=== PATIENT | male | born 1940 | race Caucasian/White ===

== ENCOUNTER 2020-01-01 11:50 | Inpatient (IN) ==
[2020-01-01] MEDS ORDERED: Acetaminophen 325 MG TABLET PO ONE (12:04)
[2020-01-01] MEDS ORDERED: Dexamethasone 4 MG/ML VIAL IVP STA (12:06)
[2020-01-01 13:03] LABS: Eosinophils % 0.4 %; Hematocrit 39.4 % (37.5-50.1); Hemoglobin 13.2 g/dL (12.9-16.9); Immature Granulocytes % 0.4 % (0-4); Lymphocytes # 0.5 K/mcL (0.6-4.6); Mean Corpuscular HGB Conc 33.5 g/dL (31.6-35.5); Mean Corpuscular Hemoglobin 31.1 pg (28.0-33.3); Mean Corpuscular Volume 92.7 fL (83.0-100.0); Mean Platelet Volume 10.2 fL (9.4-12.4); Monocytes # 0.4 K/mcL (0.0-1.3); Monocytes % 16.3 %; Neutrophils # 1.4 K/mcL (1.6-8.9); Platelet Count 140 K/mcL (140-400); Red Blood Count 4.25 M/mcL (4.19-5.50); Red Cell Distribution Width 12.3 % (11.5-14.5); Segmented Neutrophils % 61.9 %; White Blood Count 2.3 K/mcL (4.3-11.1)
[2020-01-01] MEDS ORDERED: cefTRIAXone 1,000 MG in Water for inj. (sterile) 10 ML IVP ONE (13:19)
[2020-01-01] MEDS ORDERED: Azithromycin 500 MG in 0.9 % Sodium Chloride 250 ML IVPB ONE (13:19)
[2020-01-01 13:22] LABS: Alanine Aminotransferase 19 Units/L (7-52); Albumin 3.6 g/dL (3.5-5.7); Albumin/Globulin Ratio 1.3 (1.1-2.2); Alkaline Phosphatase 44 Units/L (34-104); Aspartate Amino Transferase 38 Units/L (13-39); BUN/Creatinine Ratio 13 (6-26); Bilirubin,Direct 0.3 mg/dL (0.0-0.2); Bilirubin,Indirect 0.8 mg/dL (0.0-1.0); Bilirubin,Total 1.1 mg/dL (0.3-1.0); Blood Urea Nitrogen 21 mg/dL (8-23); C-Reactive Protein 35 mg/L (Less than 10); Carbon Dioxide 23 mEq/L (23-29); Chloride 103 mEq/L (98-107); Globulin 2.7 g/dL (2.4-3.5); Glucose 111 mg/dL (70-105); Lactate Dehydrogenase 255 Units/L (140-271); Magnesium 2.2 mg/dL (1.6-2.6); Osmolality,Calculated 282 (280-300); Phosphorous 2.5 mg/dL (2.7-4.5); Potassium 4.3 mEq/L (3.5-5.1); Sodium 134 mEq/L (136-145); Total Protein 6.3 g/dL (6.4-8.9); Troponin I < 0.03 ng/mL (< 0.04); eGFR For African Americans 51 (> 60); eGFR For Non-African Americans 42 (> 60)
[2020-01-01 13:39] LABS: Ferritin 569 ng/mL (20-250)
[2020-01-01 14:22] LABS: Activated Partial Thrombo Time 29.3 Seconds (26.0-36.0); INR 1.1; Prothrombin Time 12.8 Seconds (9.4-12.1)
[2020-01-01] MEDS ORDERED: Naloxone 0.4 MG/ML INJ IVP PRN (14:45)
[2020-01-01] MEDS: 0.9 % Sodium Chloride 250 ML ONE (23:38)
[2020-01-02] MEDS ORDERED: *HR* Enoxaparin 30 MG/0.3 ML SYRINGE SQ SCH (06:00)
[2020-01-02 10:33] LABS: Basophils % 0.2 %; Hematocrit 42.9 % (37.5-50.1); Hemoglobin 14.5 g/dL (12.9-16.9); Immature Granulocytes % 0.4 % (0-4); Lymphocytes # 0.5 K/mcL (0.6-4.6); Mean Corpuscular HGB Conc 33.8 g/dL (31.6-35.5); Mean Corpuscular Volume 91.7 fL (83.0-100.0); Mean Platelet Volume 10.3 fL (9.4-12.4); Monocytes # 0.4 K/mcL (0.0-1.3); Monocytes % 7.8 %; Platelet Count 149 K/mcL (140-400); Red Blood Count 4.68 M/mcL (4.19-5.50); Red Cell Distribution Width 11.9 % (11.5-14.5); Segmented Neutrophils % 81.6 %
[2020-01-02 10:35] LABS: White Blood Count 4.9 K/mcL (4.3-11.1)
[2020-01-02 10:50] LABS: BUN/Creatinine Ratio 18 (6-26); Blood Urea Nitrogen 21 mg/dL (8-23); Calcium 8.6 mg/dL (8.6-10.3); Carbon Dioxide 22 mEq/L (23-29); Chloride 106 mEq/L (98-107); Glucose 115 mg/dL (70-105); Osmolality,Calculated 294 (280-300); Potassium 4.3 mEq/L (3.5-5.1); Sodium 140 mEq/L (136-145); eGFR For African Americans > 60 (> 60); eGFR For Non-African Americans 59 (> 60)
[2020-01-02] MEDS: Metoprolol XL (24 HR) Succ 25 MG TAB.ER.24H PO SCH (11:18)
[2020-01-02] MEDS: Azithromycin 250 MG TABLET PO SCH (19:37)
[2020-01-02] MEDS: Cefdinir 300 MG CAPSULE PO SCH (19:38)
[2020-01-02] MEDS: Melatonin 3 MG TABLET PO PRN (21:16)
[2020-01-02] MEDS ORDERED: 0.9 % Sodium Chloride 250 ML ONE (23:15)
[2020-01-02] MEDS: Acetaminophen 325 MG TABLET PO PRN (23:17)
[2020-01-03] MEDS: *HR* Enoxaparin 40 MG/0.4 ML SYRINGE SQ SCH (05:29)
[2020-01-03 08:47] LABS: Hematocrit 39.7 % (37.5-50.1); Hemoglobin 13.1 g/dL (12.9-16.9); Immature Granulocytes % 0.3 % (0-4); Lymphocytes # 0.6 K/mcL (0.6-4.6); Lymphocytes % 14.3 %; Mean Corpuscular Hemoglobin 30.4 pg (28.0-33.3); Mean Corpuscular Volume 92.1 fL (83.0-100.0); Mean Platelet Volume 9.9 fL (9.4-12.4); Monocytes # 0.3 K/mcL (0.0-1.3); Neutrophils # 3.1 K/mcL (1.6-8.9); Platelet Count 170 K/mcL (140-400); Red Blood Count 4.31 M/mcL (4.19-5.50); Red Cell Distribution Width 11.9 % (11.5-14.5); Segmented Neutrophils % 78.4 %
[2020-01-03 09:04] LABS: BUN/Creatinine Ratio 18 (6-26); Blood Urea Nitrogen 22 mg/dL (8-23); Calcium 8.1 mg/dL (8.6-10.3); Carbon Dioxide 24 mEq/L (23-29); Chloride 105 mEq/L (98-107); Glucose 98 mg/dL (70-105); Magnesium 2.1 mg/dL (1.6-2.6); Osmolality,Calculated 285 (280-300); Sodium 136 mEq/L (136-145); eGFR For African Americans > 60 (> 60); eGFR For Non-African Americans 58 (> 60)
[2020-01-03] MEDS: Azithromycin 250 MG TABLET PO SCH (09:51)
[2020-01-03] MEDS: Cefdinir 300 MG CAPSULE PO SCH (09:51)
[2020-01-03] MEDS: Aspirin Enteric Coated 81 MG Tablet PO SCH (09:52)
[2020-01-03] MEDS: Metoprolol XL (24 HR) Succ 25 MG TAB.ER.24H PO SCH (09:52)
[2020-01-03] MEDS ORDERED: Benzonatate 100 MG CAPSULE PO PRN (13:10)
[2020-01-03] MEDS: Ipratropium 1 PUFF INHALER IH SCH ×2 (17:11→22:01)
[2020-01-03] MEDS: Acetaminophen 325 MG TABLET PO PRN (20:19)
[2020-01-03] MEDS: Melatonin 3 MG TABLET PO PRN (20:20)
[2020-01-03] MEDS: Budesonide/Formoterol 80/4.5 1 PUFF INH IH SCH (22:01)
[2020-01-04] MEDS: Ipratropium 1 PUFF INHALER IH SCH ×4 (03:24→22:09)
[2020-01-04] MEDS: *HR* Enoxaparin 40 MG/0.4 ML SYRINGE SQ SCH (06:35)
[2020-01-04 07:32] LABS: Activated Partial Thrombo Time 27.3 Seconds (26.0-36.0)
[2020-01-04 07:34] LABS: INR 1.1; Prothrombin Time 12.8 Seconds (9.4-12.1)
[2020-01-04 07:40] LABS: Hematocrit 39.3 % (37.5-50.1); Hemoglobin 13.4 g/dL (12.9-16.9); Mean Corpuscular HGB Conc 34.1 g/dL (31.6-35.5); Mean Corpuscular Hemoglobin 31.6 pg (28.0-33.3); Mean Corpuscular Volume 92.7 fL (83.0-100.0); Mean Platelet Volume 9.9 fL (9.4-12.4); Platelet Count 183 K/mcL (140-400); Red Blood Count 4.24 M/mcL (4.19-5.50); White Blood Count 3.8 K/mcL (4.3-11.1)
[2020-01-04 08:07] LABS: Alanine Aminotransferase 18 Units/L (7-52); Albumin 3.2 g/dL (3.5-5.7); Albumin/Globulin Ratio 1.1 (1.1-2.2); Alkaline Phosphatase 50 Units/L (34-104); Aspartate Amino Transferase 28 Units/L (13-39); BUN/Creatinine Ratio 18 (6-26); Bilirubin,Total 0.8 mg/dL (0.3-1.0); Blood Urea Nitrogen 21 mg/dL (8-23); Calcium 8.3 mg/dL (8.6-10.3); Carbon Dioxide 22 mEq/L (23-29); Chloride 105 mEq/L (98-107); Glucose 95 mg/dL (70-105); Lactate Dehydrogenase 225 Units/L (140-271); Osmolality,Calculated 287 (280-300); Phosphorous 3.2 mg/dL (2.7-4.5); Potassium 3.8 mEq/L (3.5-5.1); Sodium 137 mEq/L (136-145); Total Protein 6.2 g/dL (6.4-8.9); eGFR For African Americans > 60 (> 60); eGFR For Non-African Americans 58 (> 60)
[2020-01-04 08:21] LABS: Ferritin 510 ng/mL (20-250)
[2020-01-04] MEDS ORDERED: Dexamethasone 4 MG/ML VIAL IVP SCH ×2 (09:00)
[2020-01-04 09:43] LABS: C-Reactive Protein 44 mg/L (Less than 10)
[2020-01-04] MEDS: Metoprolol XL (24 HR) Succ 25 MG TAB.ER.24H PO SCH (10:31)
[2020-01-04] MEDS: Aspirin Enteric Coated 81 MG Tablet PO SCH (10:31)
[2020-01-04] MEDS: Budesonide/Formoterol 80/4.5 1 PUFF INH IH SCH ×2 (10:58→22:10)
[2020-01-04] MEDS: 0.9 % Sodium Chloride 250 ML ONE (20:42)
[2020-01-04] MEDS ORDERED: Dexamethasone 4 MG/ML VIAL IVP ONE (20:45)
[2020-01-04] MEDS: Melatonin 3 MG TABLET PO PRN (22:11)
[2020-01-04] MEDS: Acetaminophen 325 MG TABLET PO PRN (22:11)
[2020-01-05] MEDS: Ipratropium 1 PUFF INHALER IH SCH ×4 (03:26→20:48)
[2020-01-05] MEDS: *HR* Enoxaparin 40 MG/0.4 ML SYRINGE SQ SCH (05:00)
[2020-01-05 06:51] LABS: Hematocrit 41.5 % (37.5-50.1); Hemoglobin 14.1 g/dL (12.9-16.9); Mean Corpuscular Hemoglobin 31.4 pg (28.0-33.3); Mean Corpuscular Volume 92.4 fL (83.0-100.0); Mean Platelet Volume 9.9 fL (9.4-12.4); Platelet Count 267 K/mcL (140-400); Red Blood Count 4.49 M/mcL (4.19-5.50); Red Cell Distribution Width 11.8 % (11.5-14.5); White Blood Count 3.8 K/mcL (4.3-11.1)
[2020-01-05 07:14] LABS: BUN/Creatinine Ratio 19 (6-26); Blood Urea Nitrogen 24 mg/dL (8-23); Calcium 9.1 mg/dL (8.6-10.3); Carbon Dioxide 23 mEq/L (23-29); Chloride 104 mEq/L (98-107); Glucose 150 mg/dL (70-105); Magnesium 2.3 mg/dL (1.6-2.6); Osmolality,Calculated 291 (280-300); Phosphorous 3.9 mg/dL (2.7-4.5); Potassium 4.8 mEq/L (3.5-5.1); Sodium 137 mEq/L (136-145); eGFR For African Americans > 60 (> 60); eGFR For Non-African Americans 55 (> 60)
[2020-01-05] MEDS: Budesonide/Formoterol 80/4.5 1 PUFF INH IH SCH ×2 (10:27→20:49)
[2020-01-05] MEDS: Dexamethasone 4 MG/ML VIAL IVP SCH (10:29)
[2020-01-05] MEDS: Aspirin Enteric Coated 81 MG Tablet PO SCH (10:30)
[2020-01-05] MEDS: Metoprolol XL (24 HR) Succ 25 MG TAB.ER.24H PO SCH (10:30)
[2020-01-05] MEDS: Melatonin 3 MG TABLET PO PRN (20:10)
[2020-01-05] MEDS: Acetaminophen 325 MG TABLET PO PRN (20:10)
[2020-01-06] MEDS: Ipratropium 1 PUFF INHALER IH SCH ×5 (03:46→23:49)
[2020-01-06] MEDS: *HR* Enoxaparin 40 MG/0.4 ML SYRINGE SQ SCH (05:08)
[2020-01-06] MEDS: Aspirin Enteric Coated 81 MG Tablet PO SCH (08:04)
[2020-01-06] MEDS: Metoprolol XL (24 HR) Succ 25 MG TAB.ER.24H PO SCH (08:04)
[2020-01-06] MEDS: Dexamethasone 4 MG/ML VIAL IVP SCH (08:04)
[2020-01-06] MEDS: Budesonide/Formoterol 80/4.5 1 PUFF INH IH SCH ×2 (11:01→19:54)
[2020-01-06 11:26] LABS: Mean Corpuscular HGB Conc 34.1 g/dL (31.6-35.5); Mean Corpuscular Hemoglobin 31.2 pg (28.0-33.3); Mean Corpuscular Volume 91.3 fL (83.0-100.0); Mean Platelet Volume 9.7 fL (9.4-12.4); Platelet Count 278 K/mcL (140-400); Red Blood Count 4.49 M/mcL (4.19-5.50); Red Cell Distribution Width 11.7 % (11.5-14.5)
[2020-01-06 11:28] LABS: White Blood Count 7.8 K/mcL (4.3-11.1)
[2020-01-06 11:50] LABS: Albumin 3.3 g/dL (3.5-5.7); Albumin/Globulin Ratio 1.1 (1.1-2.2); Bilirubin,Total 0.6 mg/dL (0.3-1.0); Calcium 8.8 mg/dL (8.6-10.3); Magnesium 2.3 mg/dL (1.6-2.6); Phosphorous 2.7 mg/dL (2.7-4.5); Potassium 4.1 mEq/L (3.5-5.1); Total Protein 6.3 g/dL (6.4-8.9)
[2020-01-06] MEDS ORDERED: Furosemide 20 MG/2 ML VIAL IVP SCH (14:00)
[2020-01-06] MEDS: Acetaminophen 325 MG TABLET PO PRN (19:29)
[2020-01-06] MEDS: Melatonin 3 MG TABLET PO PRN (19:30)
[2020-01-07] MEDS: Ipratropium 1 PUFF INHALER IH SCH ×6 (03:32→23:53)
[2020-01-07] MEDS: *HR* Enoxaparin 40 MG/0.4 ML SYRINGE SQ SCH (05:14)
[2020-01-07] MEDS: Budesonide/Formoterol 80/4.5 1 PUFF INH IH SCH ×2 (07:55→20:03)
[2020-01-07] MEDS: Dexamethasone 4 MG/ML VIAL IVP SCH (08:15)
[2020-01-07] MEDS: Aspirin Enteric Coated 81 MG Tablet PO SCH (08:15)
[2020-01-07] MEDS: Metoprolol XL (24 HR) Succ 25 MG TAB.ER.24H PO SCH (08:15)
[2020-01-07] MEDS ORDERED: Furosemide 20 MG/2 ML VIAL IVP SCH (09:00)
[2020-01-07 09:15] LABS: Basophils % 0.2 %; Hematocrit 42.4 % (37.5-50.1); Hemoglobin 14.6 g/dL (12.9-16.9); Immature Granulocytes % 0.8 % (0-4); Lymphocytes # 0.6 K/mcL (0.6-4.6); Lymphocytes % 6.8 %; Mean Corpuscular HGB Conc 34.4 g/dL (31.6-35.5); Mean Corpuscular Hemoglobin 31.5 pg (28.0-33.3); Mean Corpuscular Volume 91.4 fL (83.0-100.0); Monocytes % 11.4 %; Neutrophils # 7.4 K/mcL (1.6-8.9); Platelet Count 310 K/mcL (140-400); Red Blood Count 4.64 M/mcL (4.19-5.50); Red Cell Distribution Width 11.7 % (11.5-14.5); Segmented Neutrophils % 80.8 %; White Blood Count 9.1 K/mcL (4.3-11.1)
[2020-01-07 09:26] LABS: Fibrinogen 291 mg/dL (169-393)
[2020-01-07 09:28] LABS: D-Dimer 3889 ng/mLFEU (0-500)
[2020-01-07 09:35] LABS: C-Reactive Protein < 5 mg/L (Less than 10); Lactate Dehydrogenase 223 Units/L (140-271); Magnesium 2.2 mg/dL (1.6-2.6)
[2020-01-07 09:53] LABS: Ferritin 440 ng/mL (20-250)
[2020-01-07] MEDS: Melatonin 3 MG TABLET PO PRN (20:31)
[2020-01-07] MEDS: Acetaminophen 325 MG TABLET PO PRN (20:31)
[2020-01-08] MEDS: Ipratropium 1 PUFF INHALER IH SCH ×4 (03:32→15:09)
[2020-01-08] MEDS: *HR* Enoxaparin 40 MG/0.4 ML SYRINGE SQ SCH (05:28)
[2020-01-08 05:42] LABS: Basophils % 0.3 %; Hematocrit 42.5 % (37.5-50.1); Hemoglobin 14.3 g/dL (12.9-16.9); Immature Granulocytes % 1.4 % (0-4); Lymphocytes # 0.5 K/mcL (0.6-4.6); Lymphocytes % 6.5 %; Mean Corpuscular HGB Conc 33.6 g/dL (31.6-35.5); Mean Corpuscular Hemoglobin 30.6 pg (28.0-33.3); Mean Corpuscular Volume 90.8 fL (83.0-100.0); Mean Platelet Volume 10.2 fL (9.4-12.4); Monocytes # 0.9 K/mcL (0.0-1.3); Monocytes % 11.2 %; Neutrophils # 6.3 K/mcL (1.6-8.9); Platelet Count 286 K/mcL (140-400); Red Blood Count 4.68 M/mcL (4.19-5.50); Red Cell Distribution Width 11.8 % (11.5-14.5); Segmented Neutrophils % 80.6 %; White Blood Count 7.8 K/mcL (4.3-11.1)
[2020-01-08 05:52] LABS: Albumin 3.5 g/dL (3.5-5.7); Albumin/Globulin Ratio 1.2 (1.1-2.2); Bilirubin,Total 0.6 mg/dL (0.3-1.0); Calcium 9.1 mg/dL (8.6-10.3); Potassium 4.6 mEq/L (3.5-5.1); Total Protein 6.5 g/dL (6.4-8.9)
[2020-01-08 05:56] LABS: C-Reactive Protein < 5 mg/L (Less than 10); Lactate Dehydrogenase 233 Units/L (140-271); Magnesium 2.2 mg/dL (1.6-2.6); Phosphorous 3.3 mg/dL (2.7-4.5)
[2020-01-08 06:11] LABS: Ferritin 494 ng/mL (20-250)
[2020-01-08] MEDS: Budesonide/Formoterol 80/4.5 1 PUFF INH IH SCH (07:25)
[2020-01-08 07:47] VITALS: BP 107/86
[2020-01-08] MEDS: Aspirin Enteric Coated 81 MG Tablet PO SCH (09:31)
[2020-01-08] MEDS: Metoprolol XL (24 HR) Succ 25 MG TAB.ER.24H PO SCH (09:31)
[2020-01-08] MEDS: Dexamethasone 4 MG/ML VIAL IVP SCH (09:31)
== END 2020-01-08 17:39 | disposition home health service (06) | DRG 871 ==
LOC: 2NENU 11:50 → EMEROOARM 11:50 → SUATTDRO 14:13 → 2NENU 15:00
PROVIDERS: ADMIT Family Medicine; ATTEND Internal Medicine